=== PATIENT | male | born 1985 | race Native Hawaiian/Other Pacific Islander ===

== ENCOUNTER 2020-12-15 17:31 | Emergency (ER) | payer OTHER ==
[~2020-12-15] VITALS: Ht 180.3 cm; Wt 143.8 kg
[2020-12-15 18:37] VITALS: BP 158/78; TEMP 98
== END 2020-12-15 18:38 | disposition home or self-care (01) ==
LOC: ED 17:31
DX: J06.9 Acute upper respiratory infection, unspecified (principal); J02.9 Acute pharyngitis, unspecified; Z20.822 Contact with and (suspected) exposure to COVID-19
CPT/HCPCS: 87635; 87651; 96372; 99283; J0696; J1100; U0003